=== PATIENT | male | born 1995 | race Caucasian/White ===

== ENCOUNTER 2016-09-19 11:28 | Emergency (ER) | payer OTHER ==
[2016-09-19] MEDS ORDERED: Docusate LIQ* 100 MG/10 ML UDC PO PRN (12:46)
[2016-09-19] MEDS ORDERED: Docusate LIQ* 100 MG/10 ML UDC ONE (12:59)
--- NOTE | 2016-09-19 14:08 | UC ---
Ear Complaint HPI - HPI Summary HPI Summary: WHILE AT AUDIOLOGY TEST, DISCOVERED RIGHT EAR PLUGGED WITH CERUMEN. NO FEVER. NO TRAUMA. TOLD TO COME HERE TO HAVE CERUMEN REMOVED. - History of Current Complaint Chief Complaint: UCDizziness Stated Complaint: EAR PAIN Time Seen by Provider: 09/19/16 12:09 Hx Obtained From: Patient Onset/Duration: Gradual Onset, Lasting Weeks, Still Present Severity Initially: Mild Severity Currently: Mild Pain Intensity: 2 Pain Scale Used: 0-10 Numeric Associated Signs/Symptoms: Positive: Hearing Loss - Allergies/Home Medications Allergies/Adverse Reactions: Allergies Allergy/AdvReac Type Severity Reaction Status Date / Time No Known Allergies Allergy Unverified 09/02/12 14:05 Home Medications: Home Medications NK [No Home Medications Reported] 09/19/16 [History Confirmed 09/19/16] PMH/Surg Hx/FS Hx/Imm Hx Previously Healthy: Yes - Surgical History Surgical History: Yes Surgery Procedure, Year, and Place: appy - Family History Known Family History: Negative: Respiratory Disease - Social History Occupation: Student Lives: With Family Alcohol Use: None Substance Use Type: None Smoking Status (MU): Never Smoked Tobacco Review of Systems Constitutional: Negative Skin: Negative Eyes: Negative ENT: Other - RIGHT EAR CERUMEN IMPACTION Respiratory: Negative Cardiovascular: Negative Gastrointestinal: Negative Genitourinary: Negative Motor: Negative Neurovascular: Negative Musculoskeletal: Negative Neurological: Negative Psychological: Negative All Other Systems Reviewed And Are Negative: Yes Physical Exam Triage Information Reviewed: Yes Appearance: Well-Appearing, No Pain Distress, Well-Nourished Vital Signs: Initial Vital Signs Temp 98.4 F 09/19/16 11:31 Pulse 76 09/19/16 11:31 Resp 15 09/19/16 11:31 BP 153/75 09/19/16 11:31 Pulse Ox 100 09/19/16 11:31 Vital Signs Reviewed: Yes Eye Exam: Normal ENT: Positive: Normal ENT inspection - S/P CERUMEN REMOVAL, Hearing grossly normal, Pharynx normal, Other: - CERUMEN IMPACTION RIGHT EAR; CERUMEN SUCCESSFULLY REMOVED Dental Exam: Normal Neck exam: Normal Respiratory Exam: Normal Respiratory: Positive: Chest non-tender, Lungs clear, Normal breath sounds, No respiratory distress, No accessory muscle use Cardiovascular Exam: Normal Cardiovascular: Positive: RRR, No Murmur, Pulses Normal Abdominal Exam: Normal Musculoskeletal Exam: Normal Neurological Exam: Normal Psychological Exam: Normal Skin Exam: Normal Ear Complaint Course/Dx - Differential Dx/Diagnosis Differential Diagnosis/HQI/PQRI: Cerumen Impaction, URI Provider Diagnoses: RIGHT EAR CERUMEN IMPACTION Discharge - Discharge Plan Condition: Stable Disposition: HOME Patient Education Materials: Cerumen Impaction (ED) Referrals: Ella Garcia MD [Primary Care Provider] -
== END 2016-09-19 13:48 | disposition home or self-care (01) ==
LOC: UCEAST 11:28
DX: H61.21 Impacted cerumen, right ear (principal)
CPT/HCPCS: 99202; A9270-GY; G0463